=== PATIENT | male | born 1970 | race African-American/Black ===

== ENCOUNTER 2017-12-10 12:38 | Inpatient (IN) | payer OTHER ==
[~2017-12-10] VITALS: Ht 91.4 cm; Wt 67.7 kg
--- NOTE | ~2017-12-10 | EKG ---
[address] [place] [employer] [place] [address] ELECTROCARDIOGRAM REPORT Name: KRISHNANTEZ Room #: 436-P ADM IN M.R.#: [id number] Admission: 12/10/17 Attend Phys: Rizwan Parrish DO Discharge: Date of : 74 Report #: [id number] THIS REPORT FOR: //name// [facility] ED Test Date: 2017-12-10 Test Time: 13:35:43 Pat Name: TEZ KRISHNAN Department: Room: 436 Gender: M Log Scaler: RENETTA : 1970 Requested By: Andrew Guerrero Order Number: [id number] MD: Dashawn Espinoza Measurements Intervals [place] Rate: 122 P: 56 MT: 147 QRS: -5 QRSD: 90 T: 38 QT: 314 QTc: 448 Interpretive Statements Sinus tachycardia Otherwise no significant abnormality Compared to ECG 12/10/2015 04:36:16 heart rate has increased Electronically Signed On 12-11-2017 8:25:25 MACHINE MOVER by Dashawn Espinoza [email or web address] <ELECTRONICALLY SIGNED> By: Dashawn Espinoza MD, [facility] 12/11/17 0825 Dashawn Espinoza MD, FACC /EPI
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
[~2017-12-10 12:38] MED LIST: BACTRIM DS TAB1 EACH PO; CENTRUM SILVER1 EAC4 PO; ENOXAPARIN40 MG/0.1 SUBQ; HALOPERIDOL5 MG/1 ML IV PUSH; IRON325 PO; MAXIPIME2 GM IVPB; MSL20MG/ML PO; NAPROSYN500 M1 PO; NORCO 10-325 T1 EACH PO; ONDANSETRON HCL4 M2 IV; ONE DAILY COMP1 EAC1 PO; SEROQUEL 50 MG50 MG PO; SSD CREAM 1% 5050 GM TOP; TRAMADOL 50 MG50 MG PO; TYLENOL325 MG PO; VANCO1GM IV; VENOFER20 MG/ML IVPB; VITAMINC500 PO; ZINC50 M1 PO; ZINC50 M2 PO
[2017-12-10 12:49] VITALS: BP 139/88
[2017-12-10 14:49] LABS: ABSOLUTE NEUTROPHILS 4.1 thou/uL (1.4-8.2); BASOPHILS 0.7 % (0.0-2.0); EOSINOPHILS 2.5 % (0.0-3.0); HEMATOCRIT 34.6 % (42.0-52.0); HEMOGLOBIN 10.9 gm/dL (14.0-18.0); LYMPHOCYTES 29.9 % (24.0-44.0); MCH 23.9 pg (26.0-34.0); MCHC 31.4 g/dL (28.0-37.0); MCV 76.3 fL (80.0-100.0); MONOCYTES 11.4 % (1.0-8.0); PLATELET COUNT 364 thou/uL (150-400); POLYS 55.5 % (36.0-66.0); RBC 4.54 mil/uL (4.50-6.00); RDW 17.2 % (10.5-14.5); WBC 7.4 thou/uL (4.0-11.0)
[2017-12-10 15:02] LABS: ANION GAP 11 mmol/L (7-16); BUN 17 mg/dL (7-18); CALCIUM 9.3 mg/dL (8.5-10.1); CHLORIDE 105 mmol/L (98-107); CO2 24 mmol/L (21-32); CREATININE 1.3 mg/dL (0.7-1.3); GLUCOSE 98 mg/dL (74-106); POTASSIUM 3.6 mmol/L (3.5-5.1); SODIUM 140 mmol/L (136-145)
[2017-12-10 15:11] LABS: ALBUMIN 2.4 g/dL (3.4-5.0); SGOT 16 U/L (15-37); SGPT 17 U/L (30-65); TOTAL BILIRUBIN 0.1 mg/dL (<0.1-1.0); TOTAL PROTEIN 8.5 g/dL (6.4-8.2); TROPONIN-I < 0.04 ng/mL (<0.06)
[2017-12-10 15:32] LABS: URINE BILIRUBIN NEGATIVE (Negative); URINE BLOOD 3+ (Negative); URINE CLARITY CLOUDY; URINE COLOR YELLOW; URINE GLUCOSE-RANDOM* NEGATIVE (Negative); URINE KETONES NEGATIVE (Negative); URINE PROTEIN (DIPSTICK) 3+ (Negative); URINE UROBILINOGEN 0.2 E.U./dl (0.2-1.0)
[2017-12-10 15:34] LABS: URINE LEUKOCYTES-REFLEX 2+ (Negative); URINE NITRITE-REFLEX POSITIVE (Negative)
[2017-12-10 15:41] LABS: AMP/METHAMP Negative (Negative); BACTERIA-REFLEX >30 Many /HPF (None Seen); BARBITURATES Negative (Negative); BENZODIAZEPINES Negative (Negative); CASTS None Seen /LPF (None Seen); COCAINE Negative (Negative); CRYSTALS None Seen /LPF (None Seen); METHADONE Negative (Negative); MUCUS >6 Heavy strn/LPF (None Seen); OPIATES Negative (Negative); PCP POSITIVE (Negative); SQUAMOUS 0-3 Few /LPF (0-3); URINE RBC >20 Many /HPF (0-2); URINE WBC-REFLEX >25 Many /HPF (0-5)
[2017-12-10 17:40] VITALS: BP 123/70
[2017-12-10 17:49] VITALS: BP 119/81
[2017-12-10 21:30] VITALS: BP 123/81
[2017-12-11] VITALS: BP 97/61
[2017-12-11 03:03] VITALS: BP 80/44
[2017-12-11 08:00] VITALS: BP 111/66
[2017-12-11 10:08] LABS: CREATININE 1.5 mg/dL (0.7-1.3)
[2017-12-11 10:52] LABS: ABSOLUTE NEUTROPHILS 3.5 thou/uL (1.4-8.2); BASOPHILS 0.5 % (0.0-2.0); EOSINOPHILS 4.8 % (0.0-3.0); HEMATOCRIT 33.4 % (42.0-52.0); HEMOGLOBIN 10.6 gm/dL (14.0-18.0); MCH 24.2 pg (26.0-34.0); MCHC 31.8 g/dL (28.0-37.0); MCV 76.1 fL (80.0-100.0); MONOCYTES 7.9 % (1.0-8.0); PLATELET COUNT 308 thou/uL (150-400); POLYS 59.8 % (36.0-66.0); RBC 4.39 mil/uL (4.50-6.00); RDW 17.4 % (10.5-14.5); WBC 5.8 thou/uL (4.0-11.0)
[2017-12-11 16:00] VITALS: BP 117/79
[2017-12-11 20:18] VITALS: BP 106/77
[2017-12-12 05:19] VITALS: BP 109/69
[2017-12-12 08:53] VITALS: BP 111/65
[2017-12-12 16:37] VITALS: BP 103/68
[2017-12-12 17:28] LABS: ABSOLUTE NEUTROPHILS 2.2 thou/uL (1.4-8.2); BASOPHILS 0.5 % (0.0-2.0); EOSINOPHILS 5.4 % (0.0-3.0); HEMATOCRIT 30.1 % (42.0-52.0); HEMOGLOBIN 9.5 gm/dL (14.0-18.0); LYMPHOCYTES 38.9 % (24.0-44.0); MCHC 31.7 g/dL (28.0-37.0); MCV 75.6 fL (80.0-100.0); MONOCYTES 9.7 % (1.0-8.0); PLATELET COUNT 305 thou/uL (150-400); POLYS 45.5 % (36.0-66.0); RBC 3.98 mil/uL (4.50-6.00); RDW 16.8 % (10.5-14.5); WBC 4.9 thou/uL (4.0-11.0)
[2017-12-12 17:35] LABS: CALCIUM 8.8 mg/dL (8.5-10.1); CREATININE 1.4 mg/dL (0.7-1.3); POTASSIUM 4.7 mmol/L (3.5-5.1)
[2017-12-12 20:23] VITALS: BP 117/76
[2017-12-13 03:01] VITALS: BP 120/74
[2017-12-13 08:29] VITALS: BP 121/79
== END 2017-12-13 11:22 | disposition left against medical advice (07) | DRG 871 ==
LOC: ER 12:38 → 4S 17:29 → EROBS 17:29 → 4S 18:06
PROVIDERS: Emergency Medicine; Family Medicine
DX: A41.9 Sepsis, unspecified organism (principal); L89.44 Pressure ulcer of contiguous site of back, buttock and hip, stage 4; L89.154 Pressure ulcer of sacral region, stage 4; E43 Unspecified severe protein-calorie malnutrition; N17.9 Acute kidney failure, unspecified; N39.0 Urinary tract infection, site not specified; G82.20 Paraplegia, unspecified; F17.210 Nicotine dependence, cigarettes, uncomplicated; L89.159 Pressure ulcer of sacral region, unspecified stage; F12.10 Cannabis abuse, uncomplicated; Z89.612 Acquired absence of left leg above knee; Z89.611 Acquired absence of right leg above knee; Z87.442 Personal history of urinary calculi; Z93.3 Colostomy status; Z91.19 Patient's noncompliance with other medical treatment and regimen; Z88.6 Allergy status to analgesic agent; Z59.0 Homelessness
CPT/HCPCS: 10102

== ENCOUNTER 2017-12-13 20:00 | Emergency (ER) | payer OTHER ==
[~2017-12-13] VITALS: Ht 188 cm; Wt 63.0 kg
[2017-12-13 21:48] VITALS: BP 121/76
== END 2017-12-13 21:48 | disposition home or self-care (01) ==
LOC: ER 20:00
DX: T85.848A Pain due to other internal prosthetic devices, implants and grafts, initial encounter (principal); F17.210 Nicotine dependence, cigarettes, uncomplicated; Z88.5 Allergy status to narcotic agent

== ENCOUNTER 2017-12-16 19:54 | Inpatient (IN) | payer OTHER ==
[~2017-12-16] VITALS: Ht 91.4 cm; Wt 69.7 kg
[2017-12-16 19:58] VITALS: BP 128/83
[2017-12-16 21:26] LABS: ABSOLUTE NEUTROPHILS 3.2 thou/uL (1.4-8.2); BASOPHILS 0.8 % (0.0-2.0); EOSINOPHILS 2.3 % (0.0-3.0); HEMATOCRIT 34.3 % (42.0-52.0); HEMOGLOBIN 10.8 gm/dL (14.0-18.0); LYMPHOCYTES 39.6 % (24.0-44.0); MCHC 31.5 g/dL (28.0-37.0); MCV 76.2 fL (80.0-100.0); MONOCYTES 10.8 % (1.0-8.0); PLATELET COUNT 392 thou/uL (150-400); POLYS 46.5 % (36.0-66.0); RDW 17.5 % (10.5-14.5); WBC 6.9 thou/uL (4.0-11.0)
[2017-12-16 21:34] LABS: CALCIUM 9.3 mg/dL (8.5-10.1); CREATININE 1.3 mg/dL (0.7-1.3); POTASSIUM 3.9 mmol/L (3.5-5.1)
[2017-12-16 22:28] LABS: URINE BILIRUBIN NEGATIVE (Negative); URINE BLOOD 3+ (Negative); URINE COLOR YELLOW; URINE GLUCOSE-RANDOM* NEGATIVE (Negative); URINE KETONES 1+ (Negative); URINE NITRITE-REFLEX POSITIVE (Negative); URINE PROTEIN (DIPSTICK) 4+ (Negative)
[2017-12-16 22:29] LABS: URINE LEUKOCYTES-REFLEX 3+ (Negative); URINE UROBILINOGEN 0.2 E.U./dl (0.2-1.0)
[2017-12-16 22:34] LABS: AMP/METHAMP Negative (Negative); BARBITURATES Negative (Negative); BENZODIAZEPINES Negative (Negative); COCAINE Negative (Negative); METHADONE Negative (Negative); OPIATES Negative (Negative); PCP POSITIVE (Negative)
[2017-12-16 22:36] LABS: CASTS None Seen /LPF (None Seen); CRYSTALS None Seen /LPF (None Seen); MUCUS 4-6 Moderate strn/LPF (None Seen); SQUAMOUS None Seen /LPF (0-3); URINE RBC >20 Many /HPF (0-2); URINE WBC-REFLEX >25 Many /HPF (0-5); WBC CLUMPS Packed (None Seen)
[2017-12-16 22:39] LABS: URINE CLARITY CLOUDY
[2017-12-17 03:08] VITALS: BP 132/74
[2017-12-17 04:00] VITALS: BP 155/93
[2017-12-17 07:30] VITALS: BP 111/68
[2017-12-17 15:25] VITALS: BP 141/98
[2017-12-17 20:00] VITALS: BP 111/75
[2017-12-18 04:30] VITALS: BP 114/75
[2017-12-18 08:44] VITALS: BP 89/56
[2017-12-18] MEDS ORDERED: AUGMENTIN 875-1 EACH PO (09:08)
[2017-12-18] MEDS ORDERED: SEROQUEL 100 M100 MG PO (09:08)
[2017-12-18 12:21] LABS: ABSOLUTE NEUTROPHILS 3.4 thou/uL (1.4-8.2); BASOPHILS 0.7 % (0.0-2.0); EOSINOPHILS 2.6 % (0.0-3.0); HEMATOCRIT 34.5 % (42.0-52.0); HEMOGLOBIN 10.8 gm/dL (14.0-18.0); LYMPHOCYTES 31.6 % (24.0-44.0); MCH 23.6 pg (26.0-34.0); MCHC 31.4 g/dL (28.0-37.0); MCV 75.3 fL (80.0-100.0); MONOCYTES 10.1 % (1.0-8.0); PLATELET COUNT 323 thou/uL (150-400); RBC 4.59 mil/uL (4.50-6.00); RDW 17.5 % (10.5-14.5); WBC 6.1 thou/uL (4.0-11.0)
[2017-12-18 12:34] LABS: ALBUMIN 2.2 g/dL (3.4-5.0); CALCIUM 8.8 mg/dL (8.5-10.1); CREATININE 1.2 mg/dL (0.7-1.3); PHOSPHORUS 3.6 mg/dL (2.5-4.9); POTASSIUM 3.8 mmol/L (3.5-5.1)
[2017-12-18 17:11] VITALS: BP 110/72
[2017-12-19 07:10] VITALS: BP 115/78
[2017-12-19 15:36] VITALS: BP 111/71
[2017-12-19 16:25] VITALS: BP 111/71
== END 2017-12-19 17:55 | disposition home or self-care (01) | DRG 871 ==
LOC: ER 19:54 → 4E 22:29 → EROBS 22:29 → 4E 12-17 02:58
PROVIDERS: Emergency Medicine; Hospitalist
DX: A41.9 Sepsis, unspecified organism (principal); L89.154 Pressure ulcer of sacral region, stage 4; G82.20 Paraplegia, unspecified; N39.0 Urinary tract infection, site not specified; R45.851 Suicidal ideations; Z53.29 Procedure and treatment not carried out because of patient's decision for other reasons; F25.9 Schizoaffective disorder, unspecified; F12.90 Cannabis use, unspecified, uncomplicated; F17.210 Nicotine dependence, cigarettes, uncomplicated; Z87.442 Personal history of urinary calculi; Z93.3 Colostomy status; Z88.6 Allergy status to analgesic agent; Z59.0 Homelessness; Z86.14 Personal history of Methicillin resistant Staphylococcus aureus infection; Z79.899 Other long term (current) drug therapy
CPT/HCPCS: 10084